=== PATIENT | male | born 1970 | race Caucasian/White ===

== ENCOUNTER 2018-04-14 07:18 | Day surgery (SDC) | payer BC, OTHER ==
[2018-04-09 12:45] VITALS: BMI 30.3
--- NOTE | 2018-04-14 07:04 | P.GSHP ---
History of Present Illness H&P Date: 04/14/18 CHIEF COMPLAINT: Colon screen HISTORY OF PRESENT ILLNESS: The patient is a 48-year-old male who presents for colon screen. Lower endoscopy was offered for further evaluation and management. PAST MEDICAL HISTORY: Please see list. PAST SURGICAL HISTORY: Please see list. MEDICATIONS: Please see list. ALLERGIES: Please see list. SOCIAL HISTORY: No illicit drug use FAMILY HISTORY: No reports of Crohn disease or ulcerative colitis. REVIEW OF ORGAN SYSTEMS: CONSTITUTIONAL: No reports of fevers or chills. PHYSICAL EXAM: VITAL SIGNS: Stable GENERAL: Well-developed pleasant in no acute distress. HEENT: No scleral icterus. Extraocular movements grossly intact. Moist buccal mucosa. NECK: Supple without lymphadenopathy. CHEST: Unlabored respirations. Equal bilateral excursions. CARDIOVASCULAR: Regular rate and rhythm. Distal 2+ pulses. ABDOMEN: Soft, nontender, nondistended. MUSCULOSKELETAL: No clubbing, cyanosis, or edema. ASSESSMENT: 1. Colon screen. PLAN: 1. Recommend proceeding with a lower endoscopy Past Medical History Past Medical History: Asthma, Hypertension, Sleep Apnea/CPAP/BIPAP Additional Past Medical History / Comment(s): SEASONAL ASTHMA. NOT ON TX FOR HTN CURRENTLY. USES CPAP. History of Any Multi-Drug Resistant Organisms: None Reported Past Surgical History: Heart Catheterization Additional Past Surgical History / Comment(s): COLONOSCOPY Past Anesthesia/Blood Transfusion Reactions: No Reported Reaction Smoking Status: Never smoker - Past Family History Mother Family Medical History: Cancer Medications and Allergies Home Medications Medication Instructions Recorded Confirmed Type Glucosamine (Unknown Dose) 1 tab PO DAILY PRN 04/09/18 History Ibuprofen [Motrin Ib] 600 mg PO Q6H PRN 04/09/18 04/09/18 History Allergies Allergy/AdvReac Type Severity Reaction Status Date / Time No Known Allergies Allergy Verified 04/09/18 12:30
[~2018-04-14 07:18] MED LIST: LACTATED RINGERS 1,000 ML IV SCH; LIDOCAINE 1% 20 ML VIAL (10MG/ML) FOR IV START INTRADERMA PRN
[2018-04-14 07:42] VITALS: RESP 18; TEMP 97.8
[2018-04-14] MEDS ORDERED: LACTATED RINGERS 1,000 ML IV ONE ×2 (07:47)
[2018-04-14] MEDS ORDERED: PROPOFOL 10 MG/ML 20 ML VIAL IV ONE (08:10)
[2018-04-14] MEDS ORDERED: LIDOCAINE 1% INJ 10MG/ML (20 ML MDV) ONE (08:10)
--- NOTE | 2018-04-14 08:38 | P.PCN ---
Date of Procedure: 04/14/18 Description of Procedure: PREOPERATIVE DIAGNOSIS: Colonoscopy screening. History of colon cancer, mother. POSTOPERATIVE DIAGNOSIS: Colonoscopy screening. History of colon cancer, mother. Tubular adenoma, sigmoid colon Hyperplastic polyp, cecum Internal hemorrhoids, grade 1 OPERATION: Colonoscopy to the ileocecal valve and appendiceal orifice. Colonoscopy with hot snare polypectomy Colonoscopy with cold forceps biopsy SURGEON: Lillian Fitzgerald MD. ANESTHESIA: MAC. INDICATIONS: The patient is a 48-year-old male who presents for colonoscopy screening. His last colonoscopy 5 years. His mother has colon cancer. Benefits and risks were described and informed consent was obtained. DESCRIPTION OF PROCEDURE: The patient had undergone Gatorade, MiraLAX and Dulcolax prep. He had been brought into the operating room and laid in the left lateral decubitus position. After adequate intravenous sedation, the rectum was examined with 2% lidocaine jelly. The prostate was smooth and without abnormalities. No external hemorrhoids were encountered. The rectal tone was within normal limits. No lesions were palpated in the rectal vault. An Olympus colonoscope was advanced until the ileocecal valve and appendiceal orifice were clearly viewed. The prep was good with visualization of the mucosal folds. The scope was removed with visualization of each mucosal fold. No scattered diverticulosis was encountered. Colonic polyps were found and cold forcep biopsy or snare polypectomy. No evidence of focal colitis was found. Retroflexion of the scope demonstrated grade 2 internal hemorrhoids without active bleeding or inflammation. The colon was desufflated. The patient had tolerated the procedure well. Withdrawal time was over 6 minutes. FINDINGS: Internal hemorrhoids, grade 2 No external hemorrhoids. Unremarkable prostate. No sigmoid diverticulosis. No arteriovenous malformations. Removal of 3 polyps: - Snare polypectomy 20 cm from the anal verge, sigmoid colon, 5 mm tubulovillous adenoma polyp. - Cold forceps biopsy at cecum, 3 mm polyp. - Cold forceps biopsy at 20 cm from the anal verge, 4 mm polyp. No focal colitis. RECOMMENDATIONS: Repeat colonoscopy in 3 years, due to family risk and high personal risk. Plan - Discharge Summary New Discharge Prescriptions: No Action Ibuprofen [Motrin Ib] 600 mg PO Q6H PRN PRN Reason: Pain Glucosamine (Unknown Dose) 1 tab PO DAILY PRN PRN Reason: Pain Discharge Medication List Glucosamine (Unknown Dose) 1 tab PO DAILY PRN 04/09/18 [History] Ibuprofen [Motrin Ib] 600 mg PO Q6H PRN 04/09/18 [History]
[2018-04-14 08:54] VITALS: BP 128/79; PULSE 76
== END 2018-04-14 09:20 | disposition home or self-care (01) ==
LOC: ORWHC2ENDO 07:18
PROVIDERS: ATTEND Surgery Plastic and Reconstructive Surgery
DX: Z12.11 Encounter for screening for malignant neoplasm of colon (principal); D12.5 Benign neoplasm of sigmoid colon; K63.5 Polyp of colon; K64.1 Second degree hemorrhoids; Z80.0 Family history of malignant neoplasm of digestive organs; J45.909 Unspecified asthma, uncomplicated; I10 Essential (primary) hypertension; G47.33 Obstructive sleep apnea (adult) (pediatric); Z99.89 Dependence on other enabling machines and devices
CPT/HCPCS: 45380; 45385; 88305

== ENCOUNTER 2021-04-24 00:47 | Observation (INO) | payer OTHER ==
[2021-04-24] MEDS ORDERED: METOPROLOL TARTRATE 5 MG/5 ML VIAL IVP STA (01:08)
[2021-04-24] MEDS ORDERED: DILTIAZEM DRIP BOLUS FROM BAG 1 MG SOLN IV ONE (01:08)
[2021-04-24] MEDS ORDERED: SODIUM CHLORIDE 0.9% 1,000 ML IV STA ×2 (01:08)
--- NOTE | 2021-04-24 01:10 | ED ---
Chest Pain HPI - General Chief Complaint: Chest Pain Stated Complaint: High heart rate Time Seen by Provider: 04/24/21 01:08 Source: patient, family, RN notes reviewed, old records reviewed Mode of arrival: ambulatory Limitations: no limitations - History of Present Illness Initial Comments: This is a 51-year-old male DF for evaluation of elevated heart rate. Patient is also complaining of chest pain and pressure with his heart rate being elevated. No history of heart disease. No history of abnormal rhythm. No drugs or alcohol abuse. No recent fevers cough congestion nausea vomiting or diarrhea. MD Complaint: chest pain -: hour(s) Onset: other (after shower) Pain Location: substernal Pain Radiation: none, RUE, LUE, back Severity: moderate Severity scale (1-10): 4 Quality: tightness Consistency: constant Improves With: nothing Worsens With: nothing Context: recent illness Anginal Symptoms: dyspnea Treatments Prior to Arrival: none - Related Data Previous Rx's Medication Instructions Recorded Aspirin 81 mg PO DAILY chew 04/25/21 Atorvastatin [Lipitor] 40 mg PO DAILY #90 tab 04/25/21 Metoprolol Tartrate [Lopressor] 25 mg PO BID #180 tab 04/25/21 Allergies Allergy/AdvReac Type Severity Reaction Status Date / Time No Known Allergies Allergy Verified 04/24/21 07:46 Review of Systems ROS Statement: Those systems with pertinent positive or pertinent negative responses have been documented in the HPI. ROS Other: All systems not noted in ROS Statement are negative. EKG Findings - EKG Comments: EKG Findings:: EKG is A fibrillation with RVR 148 QRS 94 QTC 505 Past Medical History Past Medical History: Asthma, Hypertension, Sleep Apnea/CPAP/BIPAP Additional Past Medical History / Comment(s): SEASONAL ASTHMA. NOT ON TX FOR HTN CURRENTLY. USES CPAP. History of Any Multi-Drug Resistant Organisms: None Reported Past Surgical History: Heart Catheterization Additional Past Surgical History / Comment(s): COLONOSCOPY Past Anesthesia/Blood Transfusion Reactions: No Reported Reaction Past Psychological History: No Psychological Hx Reported Smoking Status: Never smoker Past Alcohol Use History: Rare Past Drug Use History: None Reported - Past Family History Mother Family Medical History: Cancer General Exam Limitations: no limitations General appearance: alert, in no apparent distress Head exam: Present: atraumatic, normocephalic, normal inspection Eye exam: Present: normal appearance, PERRL, EOMI. Absent: scleral icterus, conjunctival injection, periorbital swelling ENT exam: Present: normal exam, mucous membranes moist Neck exam: Present: normal inspection. Absent: tenderness, meningismus, lymphadenopathy Respiratory exam: Present: normal lung sounds bilaterally. Absent: respiratory distress, wheezes, rales, rhonchi, stridor Cardiovascular Exam: Present: normal rhythm, tachycardia, normal heart sounds. Absent: systolic murmur, diastolic murmur, rubs, gallop, clicks GI/Abdominal exam: Present: soft, normal bowel sounds. Absent: distended, tenderness, guarding, rebound, rigid Extremities exam: Present: normal inspection, full ROM, normal capillary refill. Absent: tenderness, pedal edema, joint swelling, calf tenderness Back exam: Present: normal inspection Neurological exam: Present: alert, oriented X3, CN II-XII intact Psychiatric exam: Present: normal affect, normal mood Skin exam: Present: warm, dry, intact, normal color. Absent: rash Course Vital Signs 04/24/21 04/24/21 04/24/21 00:49 01:08 01:45 Temperature 97.4 F L 97.7 F Pulse Rate 112 H 158 H 101 H Pulse Rate [ Marine Cargo Inspector ] Respiratory 18 18 16 Rate Blood Pressure 165/111 152/107 Blood Pressure [Right Arm] O2 Sat by Pulse 98 97 Oximetry 04/24/21 04/24/21 01:47 01:56 Temperature 98.7 F Pulse Rate 96 Pulse Rate [ 105 H Marine Cargo Inspector ] Respiratory 14 16 Rate Blood Pressure 132/102 Blood Pressure 151/99 [Right Arm] O2 Sat by Pulse 98 98 Oximetry Chest Pain MDM - MDM (9.9-year-old male with a trip for which with RVR, patient be admitted for rate control as well as chest pain observation Critical Care Time Critical Care Time: Yes Total Critical Care Time: 31 Disposition Clinical Impression: Atypical chest pain, Atrial fibrillation with RVR Disposition: ADMITTED IP TO THIS HOSP Is patient prescribed a controlled substance at d/c from ED?: No
[2021-04-24] MEDS: DILTIAZEM 125 MG in SODIUM CHLORIDE 0.9% 100 ML IV SCH (01:33)
[2021-04-24] MEDS ORDERED: ASPIRIN 81 MG PO STA (01:35)
[2021-04-24] MEDS ORDERED: NITROGLYCERIN SL TABS 0.4 MG TAB SUBLINGUAL PRN (01:35)
[2021-04-24] MEDS ORDERED: HEPARIN SODIUM 1,000 UN/ML (10ML VL) IV ONE (01:35)
[2021-04-24 01:49] LABS: Basophils # (A) 0.1 k/uL (0-0.2); Basophils % (A) 1 %; Eosinophils # (A) 0.1 k/uL (0-0.7); Eosinophils % (A) 1 %; HCT 49.2 % (39.0-53.0); Lymphocytes # (A) 2.4 k/uL (1.0-4.8); Lymphocytes % (A) 33 %; MCH 29.6 pg (25.0-35.0); MCHC 32.6 g/dL (31.0-37.0); MCV 90.8 fL (80.0-100.0); Mean Platelet Volume 6.9; Monocytes # (A) 0.6 k/uL (0-1.0); Monocytes % (A) 8 %; Neutrophils # (A) 4.1 k/uL (1.3-7.7); Neutrophils % (A) 55 %; Platelet Count 235 k/uL (150-450); RBC 5.42 m/uL (4.30-5.90); RDW 12.7 % (11.5-15.5); WBC 7.4 k/uL (3.8-10.6)
[2021-04-24 02:10] LABS: D-Dimer 0.24 mg/L FEU (<0.60); INR 0.9 (<1.2); Partial Thromboplastin Time 24.9 sec (22.0-30.0); Prothrombin Time 9.8 sec (9.0-12.0)
[2021-04-24 02:19] LABS: ALT 29 U/L (4-49); AST 33 U/L (17-59); African American GFR (CKD) >90 (>60 ml/min/1.73 sqM); Alkaline Phosphatase 126 U/L (38-126); Anion Gap 10 mmol/L; Blood Urea Nitrogen 13 mg/dL (9-20); Calcium 10.4 mg/dL (8.4-10.2); Carbon Dioxide 30 mmol/L (22-30); Chloride 100 mmol/L (98-107); Creatine Kinase 160 U/L (55-170); Glucose 174 mg/dL (74-99); Magnesium 1.7 mg/dL (1.6-2.3); Non-African American GFR(CKD) >90 (>60 ml/min/1.73 sqM); Phosphorus 3.1 mg/dL (2.5-4.5); Potassium 3.8 mmol/L (3.5-5.1); Sodium 140 mmol/L (137-145); Total Bilirubin 0.6 mg/dL (0.2-1.3); Total Protein 8.4 g/dL (6.3-8.2)
[2021-04-24] MEDS: HEPARIN SOD,PORK IN 0.45% NACL 25,000 UNIT in 0.45% NACL 1 250ML.BAG IV SCH (03:41)
[2021-04-24] MEDS ORDERED: METOPROLOL TARTRATE 25 MG TAB PO SCH (09:00)
[2021-04-24] MEDS ORDERED: METOPROLOL TARTRATE 25 MG TAB PO STA (09:10)
--- NOTE | 2021-04-24 10:32 | P.CRDCN ---
History of Present Illness History of present illness: HISTORY OF PRESENTING ILLNESS This is a pleasant 51-year-old male past medical history significant for asthma, hypertension, dyslipidemia and obstructive sleep apnea for which she is noncompliant with CPAP. He denies prior history of coronary artery disease and does not follow regularly with a unix administrator. He underwent a cardiac catheterization in early 1999 that he states was normal. He had a stress echocardiogram in 2014 revealed exercised for 11 minutes and had some EKG abnormalities however echocardiogram was normal. We have been asked to see in consultation for new onset atrial fibrillation. He states last evening he had taken a shower and was getting ready for bed when he started feeling his heart racing and a full sensation in his chest. His Phippen indicated that his heart rate was elevated above 140. He presented to the emergency department and EKG evaluation revealed A. fib with rapid ventricular rate heart rate of 148. He was given IV Lopressor, Cardizem infusion and heparin infusion. He continues to be in atrial fibrillation with rates between 110-115. He states at rest he still can feel funny sensation in his chest that the palpitations have significantly improved. He denies any associated shortness of breath, dizziness, nausea, vomiting or diaphoresis. Laboratory data reviewed, CBC unremarkable, d-dimer 0.24, sodium 140, potassium 3.8, creatinine 0.9, magnesium 1.7, cardiac enzymes negative 2, NT proBNP 19 and TSH 5.46. He takes no daily cardiac medications. He states over the previous couple of years he has come back and forth between taking medications for blood pressure and cholesterol however recently his physician told him he could stop. He doesn't recall what he was taking in the past. REVIEW OF SYSTEMS At the time of my exam: CONSTITUTIONAL: Denies fever or chills. CARDIOVASCULAR: Complains of palpitations. Denies chest pain, shortness of breath, orthopnea or PND. RESPIRATORY: Denies cough. GASTROINTESTINAL: Denies abdominal pain, diarrhea, constipation, nausea or vomiting. MUSCULOSKELETAL: Denies myalgias. NEUROLOGIC: Denies numbness, tingling, headacbe or weakness. ENDOCRINE: Denies fatigue, weight change, polydipsia or polyurina. GENITOURINARY: Denies burning, hematuria or urgency with micturation. HEMATOLOGIC: Denies history of anemia or bleeding. PHYSICAL EXAMINATION Blood pressure 151/99 heart rate 105 afebrile and maintaining oxygen saturation on room air. CONSTITUTIONAL: No apparent distress. HEENT: Head is normocephalic. Pupils are equal, round. Sclerae anicteric. Mucous membranes of the mouth are moist. No JVD. No carotid bruit. CHEST EXAMINATION: Lungs are clear to auscultation. No chest wall tenderness is noted on palpation or with deep breathing. HEART EXAMINATION: Irregular rate and rhythm. S1, S2 heard. Systolic ejection murmur at the left sternal border, no gallops or rub. ABDOMEN: Soft, nontender. Positive bowel sounds. EXTREMITIES: 2+ peripheral pulses, no lower extremity edema and no calf tenderness. NEUROLOGIC EXAMINATION: Patient is awake, alert and oriented x3. ASSESSMENT New onset paroxysmal atrial fibrillation with rapid ventricular rate Hypertension Dyslipidemia Obstructive sleep apnea, noncompliant with CPAP PLAN Obtain 2-D echocardiogram and Doppler study to assess cardiac structure and function. Increase lopressor to 50 mg BID. Continue cardizem and heparin infusion. If LV function is normal we will consider using flecanide. If abnormal we will schedule him for a PRISCILA/CV tomorrow am. Further recommendations to follow based on clinical course. Thank you kindly for this consultation. Nurse Practitioner note has been reviewed, I agree with a documented findings and plan of care. Patient was seen and examined. Past Medical History Past Medical History: Asthma, Hypertension, Sleep Apnea/CPAP/BIPAP Additional Past Medical History / Comment(s): SEASONAL ASTHMA. NOT ON TX FOR HTN CURRENTLY. USES CPAP. History of Any Multi-Drug Resistant Organisms: None Reported Past Surgical History: Heart Catheterization Additional Past Surgical History / Comment(s): COLONOSCOPY Past Anesthesia/Blood Transfusion Reactions: No Reported Reaction Past Psychological History: No Psychological Hx Reported Smoking Status: Never smoker Past Alcohol Use History: Rare Past Drug Use History: None Reported - Past Family History Mother Family Medical History: Cancer Medications and Allergies Home Medications Medication Instructions Recorded Confirmed Type No Known Home Medications 04/24/21 04/24/21 History Allergies Allergy/AdvReac Type Severity Reaction Status Date / Time No Known Allergies Allergy Verified 04/24/21 07:46 Physical Exam Vitals: Vital Signs Temp Pulse Pulse Resp BP BP Pulse Ox 04/24/21 04:00 98.5 F 105 H 14 151/99 98 04/24/21 01:56 96 16 132/102 98 04/24/21 01:47 98.7 F 105 H 14 151/99 98 04/24/21 01:45 97.7 F 101 H 16 152/107 97 04/24/21 01:08 158 H 18 04/24/21 00:49 97.4 F L 112 H 18 165/111 98 Intake and Output 04/23/21 04/24/21 04/24/21 22:59 06:59 14:59 Other: # Voids 1 Weight 99.2 kg Results 04/24/21 01:28 04/24/21 01:28 Cardiac Enzymes 04/24/21 04/24/21 04/24/21 Range/Units 01:28 01:28 04:24 AST 33 (17-59) U/L Troponin I <0.012 <0.012 (0.000-0.034) ng/mL Coagulation 04/24/21 Range/Units 01:28 PT 9.8 (9.0-12.0) sec APTT 24.9 (22.0-30.0) sec CBC 04/24/21 Range/Units 01:28 WBC 7.4 (3.8-10.6) k/uL RBC 5.42 (4.30-5.90) m/uL Hgb 16.0 (13.0-17.5) gm/dL Hct 49.2 (39.0-53.0) % Plt Count 235 (150-450) k/uL Comprehensive Metabolic Panel 04/24/21 Range/Units 01:28 Sodium 140 (137-145) mmol/L Potassium 3.8 (3.5-5.1) mmol/L Chloride 100 (98-107) mmol/L Carbon Dioxide 30 (22-30) mmol/L BUN 13 (9-20) mg/dL Creatinine 0.90 (0.66-1.25) mg/dL Glucose 174 H (74-99) mg/dL Calcium 10.4 H (8.4-10.2) mg/dL AST 33 (17-59) U/L ALT 29 (4-49) U/L Alkaline Phosphatase 126 (38-126) U/L Total Protein 8.4 H (6.3-8.2) g/dL Albumin 5.0 (3.5-5.0) g/dL Current Medications Generic Name Dose Route Start Last Admin Trade Name Freq PRN Reason Stop Dose Admin Sodium Chloride 1,000 mls @ 130 mls/hr 04/24/21 01:08 04/24/21 01:15 Saline 0.9% IV 04/24/21 08:49 130 mls/hr .Q7H42M STA Administration Diltiazem HCl 125 mg/ Sodium 125 mls @ 5 mls/hr 04/24/21 01:15 04/24/21 01:33 Chloride IV 5 mg/hr .Q24H JORDEN 5 mls/hr Administration 5 MG/HR Heparin Sodium/Sodium Chloride 250 mls @ 10 mls/hr 04/24/21 01:45 04/24/21 03:41 25,000 unit/ Sodium Chloride IV 9.9307 units/kg/hr .Q24H JORDEN 10 mls/hr Administration Protocol 9.9307 UNITS/KG/HR Metoprolol Tartrate 25 mg 04/24/21 09:00 Metoprolol Tartrate 25 Mg Tab PO BID JORDEN Nitroglycerin 0.4 mg 04/24/21 01:35 Nitroglycerin Sl Tabs 0.4 Mg Tab SUBLINGUAL Q5M PRN Chest Pain Intake and Output 04/23/21 04/24/21 04/24/21 22:59 06:59 14:59 Other: # Voids 1 Weight 99.2 kg 04/24/21 01:28 04/24/21 01:28
--- NOTE | 2021-04-24 10:37 | ECHOF ---
Referral Reason:aFIb MEASUREMENTS -------- HEIGHT: 182.9 cm WEIGHT: 98.9 kg BP: 151/99 IVSd: 1.6 cm (0.6 - 1.1) LVIDd: 3.9 cm (3.9 - 5.3) LVPWd: 1.8 cm (0.6 - 1.1) IVSs: 2.2 cm LVIDs: 2.8 cm LVPWs: 2.8 cm LAESV Index (A-L): 23.89 ml/m Ao Diam: 3.4 cm (2.0 - 3.7) AV Cusp: 1.7 cm (1.5 - 2.6) LA Diam: 2.6 cm (2.7 - 3.8) MV EXCURSION: 17.007 mm (> 18.000) MV EF SLOPE: 129 mm/s (70 - 150) EPSS: 0.3 cm AV maxP.29 mmHg AV meanP.26 mmHg AR PHT: 438 ms RAP: 15.00 mmHg RVSP: 29.44 mmHg FINDINGS -------- Atrial fibrillation. This was a technically adequate study. The left ventricular size is normal. There is severe concentric left ventricular hypertrophy. Ove rall left ventricular systolic function is normal with, an EF between 55 - 60 %. Left ventricular f illimg pressure cannot be estimated due to Atrial fibrillation. The right ventricle is normal in size. Normal LA size by volume 22+/-6 ml/m2. The right atrial size is normal. Aortic valve is trileaflet and is moderately thickened. Trace amount of aortic regurgitation. Th ere is mild aortic stenosis present. Peak/mean gradient across the Aortic Valve is 14.29mmHg / 8.26 mmHg. The mitral valve leaflets are moderately thickened. [id number] mitral regurgitation is presen t. There bis an echogenic structure on the AMVL. The tricuspid valve appears structurally normal. Mild tricuspid regurgitation present. Right vent ricular systolic pressure is normal at < 35 mmHg. The pulmonic valve was not well visualized. There is no pulmonic regurgitation present. The aortic root size is normal. The inferior vena cava is mildly dilated. There is no pericardial effusion. CONCLUSIONS -------- 1. Atrial fibrillation. 2. There is severe concentric left ventricular hypertrophy. 3. Overall left ventricular systolic function is normal with, an EF between 55 - 60 %. 4. Normal LA size by volume 22+/-6 ml/m2. 5. Aortic valve is trileaflet and is moderately thickened. 6. Trace amount of aortic regurgitation. 7. There is mild aortic stenosis present. 8. Peak/mean gradient across the Aortic Valve is 14.29mmHg / 8.26mmHg. 9. The mitral valve leaflets are moderately thickened. 10. Nihx-ia-ksaqkhyi mitral regurgitation is present. 11. There bis an echogenic structure on the AMVL. 12. Mild tricuspid regurgitation present. 13. The inferior vena cava is mildly dilated. 14. There is no pericardial effusion. MECHANICAL ENGINEERING SPECIALIST: Nori Rajan RDCS
[2021-04-24] MEDS ORDERED: FLECAINIDE 50 MG TAB PO STA (11:11)
[2021-04-24] MEDS ORDERED: SODIUM CHLORIDE 0.9% 1,000 ML IV SCH (14:45)
--- NOTE | 2021-04-24 14:46 | P.HPIM ---
History of Present Illness H&P Date: 04/24/21 Chief Complaint: Feeling unwell History of presenting complaint: This is a pleasant 51-year-old patient of Dr. Carter. Chronic stable medical conditions include intermittent asthma rather seasonal, obstructive sleep apnea does not use the CPAP, hypertension being taken off medications. Yesterday started feeling just not right. Some shortness of breath and palpitation. No fever no chills. Presented to ER. Found to be in atrial fibrillation with rapid ventricular rate. About 148. Given Lopressor 5 mg IV push 1 and started on a Cardizem drip. This morning. Symptoms are better. Heart rate is better controlled. Patient does drink about 5 cups of coffee a day. Soda sometimes. 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 Review of systems: GEN.: Tired EYES: None HEENT: None NECK: None RESPIRATORY: None CARDIOVASCULAR: As above GASTROINTESTINAL: None GENITOURINARY: None MUSCULOSKELETAL: None LYMPHATICS: None HEMATOLOGICAL: None PSYCHIATRY: Anxious NEUROLOGICAL: None Past medical history to include: Intermittent asthma/seasonal, essential hypertension off medications, obstructive sleep apnea does not use CPAP Social history: . 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 Chews tobacco. Alcohol socially. Physical examination: VITAL SIGNS: 97.4, 150, 18, 165 bun 11, 98% room air-upon presentation GENERAL: BMI 28.1, laying in bed, awake. EYES: Pupils equal. Conjunctiva normal. HEENT: External appearance of nose and ears normal, oral cavity grossly normal. NECK: JVD not raised; masses not palpable. HEART: And regular; no edema. LUNGS: Respiratory rate normal; clear to auscultation. ABDOMEN: Soft, nontender, liver spleen not palpable, no masses palpable. PSYCH: Alert and oriented x3; mood and affect normal. NEUROLOGICAL: Cranial nerves grossly intact; no facial asymmetry, power and sensation grossly intact. LYMPHATICS: No lymph nodes palpable in the axilla and neck INVESTIGATIONS, reviewed in the clinical context: WBC 7.4 hemoglobin 16 platelets 235 potassium 3.8 creatinine 0.9 Troponin I less than 0.0123 TSH 5.4 Coronavirus [PCR]: Not detected EKG tracing personally reviewed by me-atrial fibrillation rate of 148 2-D echocardiogram: EF 55-60%, severe concentric LVH, [id number] mitral regurgitation Assessment and plan: -New onset of atrial fibrillation with a rapid ventricular rate Was given 5 mg of Lopressor IV in the ER didn't put on a Cardizem drip. 2-D echocardiogram as above -IV heparin, monitoring -IV Cardizem drip monitoring -[id number] mitral regurgitation Follow clinically -Essential hypertension Started on Lopressor -Hypertensive heart disease -Obstructive sleep apnea Patient has not been using his CPAP. Advised to resume the same. -Chronic nicotine use in the form of chewing tobacco Advised against the same -Excessive caffeine intake patient gets about 5 cups of coffee a day. Consult about the same to cut back Cardiology was consulted. Started on metoprolol. Past Medical History Past Medical History: Asthma, Hypertension, Sleep Apnea/CPAP/BIPAP Additional Past Medical History / Comment(s): SEASONAL ASTHMA. NOT ON TX FOR HTN CURRENTLY. USES CPAP. History of Any Multi-Drug Resistant Organisms: None Reported Past Surgical History: Heart Catheterization Additional Past Surgical History / Comment(s): COLONOSCOPY Past Anesthesia/Blood Transfusion Reactions: No Reported Reaction Past Psychological History: No Psychological Hx Reported Smoking Status: Never smoker Past Alcohol Use History: Rare Past Drug Use History: None Reported - Past Family History Mother Family Medical History: Cancer Medications and Allergies Home Medications Medication Instructions Recorded Confirmed Type No Known Home Medications 04/24/21 04/24/21 History Allergies Allergy/AdvReac Type Severity Reaction Status Date / Time No Known Allergies Allergy Verified 04/24/21 07:46 Physical Exam Vitals: Vital Signs Temp Pulse Pulse Resp BP BP Pulse Ox 04/24/21 04:00 98.5 F 105 H 14 151/99 98 04/24/21 01:56 96 16 132/102 98 04/24/21 01:47 98.7 F 105 H 14 151/99 98 04/24/21 01:45 97.7 F 101 H 16 152/107 97 04/24/21 01:08 158 H 18 04/24/21 00:49 97.4 F L 112 H 18 165/111 98 Intake and Output 04/23/21 04/24/21 04/24/21 22:59 06:59 14:59 Intake Total 240 Balance 240 Intake: Oral 240 Other: # Voids 1 Weight 99.2 kg Results CBC & Chem 7: 04/24/21 01:28 04/24/21 01:28 Labs: Abnormal Lab Results - Last 24 Hours (Table) 04/24/21 Range/Units 01:28 Glucose 174 H (74-99) mg/dL Calcium 10.4 H (8.4-10.2) mg/dL Total Protein 8.4 H (6.3-8.2) g/dL TSH 5.460 H (0.465-4.680) mIU/L Thrombosis Risk Factor Assmnt - Choose All That Apply Any of the Below Risk Factors Present?: Yes Each Factor Represents 1 point: Age 41-60 years, Obesity (BMI >25) Other Risk Factors: No Thrombosis Risk Factor Assessment Total Risk Factor Score: 2 Thrombosis Risk Factor Assessment Level: Low Risk
[2021-04-24] MEDS ORDERED: METOPROLOL TARTRATE 50 MG TAB PO SCH (21:00)
[2021-04-24 23:12] LABS: Chol/HDL Ratio 6.5; LDL Cholesterol,Calculated 157.8 mg/dL (0.0-131.0); VLDL Calculation 40.2 mg/dL (5.00-40.00)
[2021-04-25 00:10] VITALS: RESP 16
[2021-04-25] MEDS: HEPARIN SOD,PORK IN 0.45% NACL 25,000 UNIT in 0.45% NACL 1 250ML.BAG IV SCH (03:17)
[2021-04-25] MEDS: DILTIAZEM 125 MG in SODIUM CHLORIDE 0.9% 100 ML IV SCH (03:17)
[2021-04-25] MEDS ORDERED: ASPIRIN 325 MG TAB PO SCH (09:00)
[2021-04-25] MEDS ORDERED: FLECAINIDE 50 MG TAB PO SCH (09:00)
[2021-04-25] MEDS ORDERED: METOPROLOL TARTRATE 25 MG TAB PO SCH (09:00)
[2021-04-25] MEDS ORDERED: ATORVASTATIN 40 MG TAB PO SCH (09:00)
[2021-04-25] MEDS ORDERED: ASPIRIN 81 MG PO SCH (09:00)
[2021-04-25 10:53] VITALS: BP 110/81; PULSE 62; TEMP 98.7
--- NOTE | 2021-04-25 11:32 | P.PN ---
Subjective HISTORY OF PRESENTING ILLNESS This is a pleasant 51-year-old male past medical history significant for asthma, hypertension, dyslipidemia and obstructive sleep apnea for which she is noncompliant with CPAP. 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 He underwent a cardiac cath eterization in early 1999 that he states was normal. He had a stress echocardiogram in 2014 revealed exercised for 11 minutes and had some EKG abnormalities however echocardiogram was normal. We have been asked to see in consultation for new onset atrial fibrillation. He states last evening he had taken a shower and was getting ready for bed when he started feeling his heart racing and a full sensation in his chest. His Phippen indicated that his heart rate was elevated above 140. He presented to the emergency department and EKG evaluation revealed A. fib with rapid ventricular rate heart rate of 148. He was given IV Lopressor, Cardizem infusion and heparin infusion. He continues to be in atrial fibrillation with rates between 110-115. He states at rest he still can feel funny sensation in his chest that the palpitations have significantly improved. He denies any associated shortness of breath, dizziness, nausea, vomiting or diaphoresis. Laboratory data reviewed, CBC unremarkable, d-dimer 0.24, sodium 140, potassium 3.8, creatinine 0.9, magnesium 1.7, cardiac enzymes negative 2, NT proBNP 19 and TSH 5.46. He takes no daily cardiac medications. He states over the previous couple of years he has come back and forth between taking medications for blood pressure and cholesterol however recently his physician told him he could stop. He doesn't recall what he was taking in the past. 04/25/2021 Patient converted last evening around 5 PM to sinus rhythm and has been ma intaining since that time. Heart rate has been in the 60s. Blood pressure 110/81. Echocardiogram obtained reveals preserved LV systolic function with ejection fraction 55-60%, severe concentric LVH, mild aortic stenosis with a mean gradient of 8 mmHg, mild to moderate mitral regurgitation with an echogenic structure noted on the anterior mitral valve leaflet, mild tricuspid regurgitation and mildly dilated inferior vena cava. Laboratory data reviewed, LDL 157, HDL 36, TSH 5.4 and free T4 1.01. PHYSICAL EXAMINATION Blood pressure 151/99 heart rate 105 afebrile and maintaining oxygen saturation on room air. CONSTITUTIONAL: No apparent distress. HEENT: Head is normocephalic. Pupils are equal, round. Sclerae anicteric. Mucous membranes of the mouth are moist. No JVD. No carotid bruit. CHEST EXAMINATION: Lungs are clear to auscultation. No chest wall tenderness is noted on palpation or with deep breathing. HEART EXAMINATION: Regular rate and rhythm. S1, S2 heard. Systolic ejection murmur at the left sternal border, no gallops or rub. EXTREMITIES: 2+ peripheral pulses, no lower extremity edema and no calf tenderness. ASSESSMENT New onset paroxysmal atrial fibrillation with rapid ventricular rate, back in SR Hypertension Dyslipidemia Obstructive sleep apnea, noncompliant with CPAP PLAN Decrease metoprolol to 25 mg twice a day. CHADS-VASC score is 1 only for hypertension. No long-term anticoagulation recommended at discharge. Discussed echocardiographic findings with the patient and recommend further outpatient evaluation. Stable for discharge from a cardiac perspective, follow-up in the office with Dr. Laguerre in one to 2 weeks. Recommend compliance with nightly CPAP machine and decreasing amount of caffeine intake. Nurse Practitioner note has been reviewed, I agree with a documented findings and plan of care. Patient was seen and examined. Objective - Vital Signs Vital signs: Vital Signs Temp 98.7 F 04/25/21 08:00 Pulse 62 04/25/21 08:00 Resp 16 04/25/21 08:00 BP 110/81 04/25/21 08:00 Pulse Ox 97 04/25/21 08:00 Intake & Output 04/24/21 04/25/21 04/25/21 18:59 06:59 18:59 Intake Total 2016 1330 180 Balance 2016 1330 180 Weight 100.1 kg Intake: Intake, IV Titration 117 610 Amount Diltiazem 125 mg In 40 Sodium Chloride 0.9% 100 ml @ 5 MG/HR 5 mls/hr IV .Q24H JORDEN Rx#:[id number] Heparin Sod,Pork in 0.45% 77 NaCl 25,000 unit In 0.45 % NaCl 1 250ml.bag @ 9. 9307 UNITS/KG/HR 10 mls/ hr IV .Q24H JORDEN Rx#: [id number] Sodium Chloride 0.9% 1, 390 000 ml @ 130 mls/hr IV . Q7H42M STA Rx#:[id number] Sodium Chloride 0.9% 1, 220 000 ml @ 20 mls/hr IV . Q24H JORDEN Rx#:[id number] Oral 1900 720 180 Other: # Voids 2 - Labs CBC & Chem 7: 04/24/21 01:28 04/24/21 01:28 Labs: Abnormal Lab Results - Last 24 Hours (Table) 04/24/21 04/24/21 04/25/21 Range/Units 09:14 18:44 07:20 APTT 46.4 H 36.3 H (22.0-30.0) sec Triglycerides 201.0 H (0.0-149.0) mg/dL Cholesterol 234 H (0-200) mg/dL LDL Cholesterol, Calc 157.8 H (0.0-131.0) mg/dL VLDL Cholesterol, Calc 40.20 H (5.00-40.00) mg/dL HDL Cholesterol 36.0 L (40.0-60.0) mg/dL
--- NOTE | 2021-04-25 20:19 | P.DS ---
Providers Date of admission: 04/24/21 01:35 Expected date of discharge: 04/25/21 Attending physician: Didier Faustin Consults: 04/24/21 01:35 Consult Physician Urgent Consulting Provider: Yesi Sweeney Consult Reason/Comments: afib Do you want consulting provider notified?: Yes Primary care physician: [facility] Course: Chief Complaint: Feeling unwell History of presenting complaint: This is a pleasant 51-year-old patient of Dr. Carter. Chronic stable medical conditions include intermittent asthma rather seasonal, obstructive sleep apnea does not use the CPAP, hypertension being taken off medications. Yesterday started feeling just not right. Some shortness of breath and palpitation. No fever no chills. Presented to ER. Found to be in atrial fibrillation with rapid ventricular rate. About 148. Given Lopressor 5 mg IV push 1 and started on a Cardizem drip. This morning. Symptoms are better. Heart rate is better controlled. Patient does drink about 5 cups of coffee a day. Soda sometimes. 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 Today: Last evening patient converted to sinus rhythm. Starting beta vinita today. Based on the chart score patient does not qualify for anticoagulation. Cleared by cardiology. Care was discussed with the patient. Questions answered. Patient LDL came back at 157. Counseled about his diet. Started on Lipitor. Discussion and discharge planning more than 35 minutes Consultation: Dr. Rouse from cardiology. Past medical history to include: Intermittent asthma/seasonal, essential hypertension off medications, obstructive sleep apnea does not use CPAP Social history: . 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 Chews tobacco. Alcohol socially. Physical examination: VITAL SIGNS: 98.7, 62, 16, 110/81, 97% room air GENERAL: Sitting up, comfortable. EYES: Pupils equal. Conjunctiva normal. NECK: JVD not raised; masses not palpable. HEART: And regular; no edema. LUNGS: Respiratory rate normal; clear to auscultation. ABDOMEN: Soft, nontender, liver spleen not palpable, no masses palpable. PSYCH: Alert and oriented x3; mood and affect normal. INVESTIGATIONS, reviewed in the clinical context: WBC 7.4 hemoglobin 16 platelets 235 potassium 3.8 creatinine 0.9 Troponin I less than 0.0123 TSH 5.4 Coronavirus [PCR]: Not detected EKG tracing personally reviewed by me-atrial fibrillation rate of 148 2-D echocardiogram: EF 55-60%, severe concentric LVH, [id number] mitral regurgitation Assessment and plan: -Paroxysmal/New onset of atrial fibrillation with a rapid ventricular rate: Back in sinus rhythm Was given 5 mg of Lopressor IV in the ER didn't put on a Cardizem drip. 2-D echocardiogram as above. Now placed on Lopressor -IV heparin, monitoring Discontinued -IV Cardizem drip monitoring Discontinued -Wdom-zo-syjoitqa mitral regurgitation Follow clinically -Essential hypertension Started on Lopressor -Hypertensive heart disease -Obstructive sleep apnea Patient has not been using his CPAP. Advised to resume the same. -Chronic nicotine use in the form of chewing tobacco Advised against the same -Excessive caffeine intake patient gets about 5 cups of coffee a day. Consult about the same to cut back -Hyperlipidemia Lipitor Disposition: Home Plan - Discharge Summary New Discharge Prescriptions: New Aspirin 81 mg PO DAILY chew Atorvastatin [Lipitor] 40 mg PO DAILY #90 tab Metoprolol Tartrate [Lopressor] 25 mg PO BID #180 tab Discharge Medication List Aspirin 81 mg PO DAILY chew 04/25/21 [Rx] Atorvastatin [Lipitor] 40 mg PO DAILY #90 tab 04/25/21 [Rx] Metoprolol Tartrate [Lopressor] 25 mg PO BID #180 tab 04/25/21 [Rx] Follow up Appointment(s)/Referral(s): Mukund Carter DO [Primary Care Provider] - 1-2 days (Office will call with appointment date and time ) Ophelia Laguerre MD [STAFF PHYSICIAN] - 2 Weeks (Office will call with appointment date and time ) Patient Instructions/Handouts: A-fib (Atrial Fibrillation) (DC), Heart Healthy Diet (GEN) Discharge Disposition: HOME SELF-CARE
== END 2021-04-25 13:37 | disposition home or self-care (01) ==
LOC: EC 00:47 → 3SCARD 01:35 → INTOOBSV 01:35 → UNDODISIN 04-25 13:37
PROVIDERS: ADMIT Hospitalist; ATTEND Hospitalist
DX: I48.0 Paroxysmal atrial fibrillation (principal); I11.9 Hypertensive heart disease without heart failure; I34.0 Nonrheumatic mitral (valve) insufficiency; E78.5 Hyperlipidemia, unspecified; G47.33 Obstructive sleep apnea (adult) (pediatric); Z91.19 Patient's noncompliance with other medical treatment and regimen; J45.20 Mild intermittent asthma, uncomplicated; J45.998 Other asthma; F17.290 Nicotine dependence, other tobacco product, uncomplicated; E66.9 Obesity, unspecified; Z68.28 Body mass index [BMI] 28.0-28.9, adult; Z20.822 Contact with and (suspected) exposure to COVID-19; Z79.82 Long term (current) use of aspirin; Z79.899 Other long term (current) drug therapy; Z98.890 Other specified postprocedural states; Z80.9 Family history of malignant neoplasm, unspecified
CPT/HCPCS: 96376; 96365; 96366 ×2; 93005 ×3; 96361; 96375; 99291; 36415; 93306; 85379; 84439; 83880; 80061; 80053; 82550; 83735; 84100; 84443; 84484; 85025; 85610; 85730 ×2; 87635; G0378 ×2; J1644 ×2; 96374; 99285

== ENCOUNTER → 2021-08-07 | Outpatient (CLI) | payer OTHER ==
--- NOTE | 2021-08-07 13:20 | CONS ---
CONSULTATION DATE OF SERVICE: 08/07/2021 51-year-old gentleman has been evaluated in [facility] for obstructive sleep apnea- hypopnea syndrome. HISTORY OF PRESENT ILLNESS/SLEEP WAKE EVALUATION: Last time I saw patient in sleep Clinic in July of 2016. He was treated for obstructive sleep apnea-hypopnea syndrome which was diagnosed by home sleep apnea test which showed apnea-hypopnea index 18.7 and then patient had CPAP titration and subsequently treated with CPAP. Since the time when I saw patient, he used his equipment for about 2 years and then stopped using it until about 2 months ago when he was found that he has episodes of atrial fibrillation and he was strongly recommended to restart using CPAP and he restarted using his CPAP. SLEEP SCHEDULE: Presently, his sleep schedule from 11 p.m. to 8 a.m. on weekdays and from midnight until 8 or 9:00 am on weekends. FALLING ASLEEP: No problems with falling asleep, although he has TV set in bedroom. DURING SLEEP: Usually sleeps on the side position, wakes up from sleep up to 2 times with nocturia. No history of hypnagogic hallucinations, sleep paralysis or cataplexy. Without machine patient snores. I checked his CPAP unit pressure is 13 cm of water. For the last month, patient used it 23 nights, 19 nights more than 4 hours, average 5.1 hours per night. Leak is 23 L/minute. Apnea-hypopnea index 2.5 which is in normal range. He decreased his weight from 231 pounds down to 210 pounds since I saw patient last time. PAST MEDICAL HISTORY: Positive for hypertension, hyperlipidemia, recently episodes of atrial fibrillation on and off. PAST SURGICAL HISTORY: None. MEDICATIONS: Lopressor 25 mg twice a day. Crestor 5 mg once a day. Aspirin 81 mg once a day. Rythmol 300 mg as needed. Multivitamins. SOCIAL HISTORY: Negative for smoking. Alcohol consumption occasional. Positive history of chewing tobacco. FAMILY HISTORY: Hypertension, asthma, mental illness. REVIEW OF SYSTEMS: Awakenings from sleep, snoring. PHYSICAL EXAMINATION: GENERAL: gentleman without distress. BP 128/83, HR 57. RR 15, height 6 feet 1 inch and 1/2, weight 210.4, body mass index 27.5, temperature 96.3, oxygen saturation at room air 99%. Oropharynx low position of soft palate, Mallampati 3. NECK is wide 17-3/4 inches in circumference. Neck: Supple, no JVD. Thyroid is not palpable. LUNGS: Clear to percussion and to auscultation. Good air exchange. No wheezing or rhonchi. HEART: S1, S2 regular. No murmurs, gallops, or rubs. ABDOMEN: Soft and nontender. Bowel sounds are present. No organomegaly appreciated. EXTREMITIES: No clubbing or cyanosis. ROLL BUILDER: Awake, alert, and oriented X3. Cranial nerves 2 to 7 intact. There is no fasciculation or atrophy. noted. No focal deficits observed. IMPRESSION: 1. Obstructive sleep apnea-hypopnea syndrome in moderate range by results of home sleep apnea test in 2016. Low position of soft palate, Mallampati wide neck 17-3/4 inches in circumference. Recently while using his machine. Apnea-hypopnea index in normal range. 2. History of episodes of atrial fibrillation. 3. Hypertension. 4. Hyperlipidemia. PLAN: 1. Prescription for all necessary CPAP supplies including a new mask, heated tube, filters. 2. Followup visit in several months to evaluate the patient compliance with treatment, clinical response on treatment and make any necessary adjustments. 3. Watching weight. 4. Sleep hygiene with regular time in bed for 7-1/2 to 8 hours. 5. No driving if feeling sleepiness. Thank you very much for allowing me to participate in management of your patient. Sincerely, Navid Ashton MD, PhD, FAASM Diplomat of [employer] [employer] Sleep Medicine Board of [place] [employer] [facility] [place] MMODL / IJN: [id number] /
== END ==
LOC: SLEEP 10:36
PROVIDERS: ATTEND Internal Medicine
DX: G47.33 Obstructive sleep apnea (adult) (pediatric) (principal); E78.5 Hyperlipidemia, unspecified; I10 Essential (primary) hypertension; I48.91 Unspecified atrial fibrillation; Z99.89 Dependence on other enabling machines and devices; Z79.899 Other long term (current) drug therapy
CPT/HCPCS: 99211

== ENCOUNTER → 2021-08-09 | Outpatient (CLI) | payer OTHER ==
[2021-08-10 02:30] LABS: C Reactive Protein 0.8 mg/dL (0.00-0.80); Uric Acid 6.7 mg/dL (3.7-8.7)
== END | disposition home or self-care (01) ==
LOC: LABWHC1 13:58
PROVIDERS: ATTEND Psychiatry & Neurology Pain Medicine
DX: M46.90 Unspecified inflammatory spondylopathy, site unspecified (principal)
CPT/HCPCS: 36415; 84550; 85652; 86140

== ENCOUNTER 2022-01-08 08:27 | Day surgery (SDC) | payer OTHER ==
[2022-01-07 10:07] VITALS: BMI 29.9
--- NOTE | 2022-01-08 08:11 | P.GSHP ---
History of Present Illness H&P Date: 01/08/22 CHIEF COMPLAINT: GERD and colon screen HISTORY OF PRESENT ILLNESS: The patient is a 51-year-old male who presents with gastroesophageal reflux disease and need for colon screen. Upper and lower endoscopy were offered for further evaluation and management. PAST MEDICAL HISTORY: Please see list. PAST SURGICAL HISTORY: Please see list. MEDICATIONS: Please see list. ALLERGIES: Please see list. SOCIAL HISTORY: No illicit drug use FAMILY HISTORY: No reports of Crohn disease or ulcerative colitis. REVIEW OF ORGAN SYSTEMS: CONSTITUTIONAL: No reports of fevers or chills. GI: Denies any blood in stools or constipation. PHYSICAL EXAM: VITAL SIGNS: Stable GENERAL: Well-developed pleasant in no acute distress. HEENT: No scleral icterus. Extraocular movements grossly intact. Moist buccal mucosa. NECK: Supple without lymphadenopathy. CHEST: Unlabored respirations. Equal bilateral excursions. CARDIOVASCULAR: Regular rate and rhythm. Distal 2+ pulses. ABDOMEN: Soft, nondistended. MUSCULOSKELETAL: No clubbing, cyanosis, or edema. ASSESSMENT: 1. Gastroesophageal reflux disease 2. Colon screen. PLAN: 1. Recommend proceeding with an upper and lower endoscopy Past Medical History Past Medical History: Atrial Fibrillation, Asthma, GERD/Reflux, Hyperlipidemia, Hypertension, Sleep Apnea/CPAP/BIPAP Additional Past Medical History / Comment(s): SEASONAL ASTHMA. USES CPAP. hx. colon polyps, hx. of a-fib, has med. that he can take if he feels it starting- hasn't had to take History of Any Multi-Drug Resistant Organisms: None Reported Past Surgical History: Heart Catheterization Additional Past Surgical History / Comment(s): COLONOSCOPY Past Anesthesia/Blood Transfusion Reactions: No Reported Reaction, Motion Sickness Past Psychological History: No Psychological Hx Reported Smoking Status: Never smoker Past Alcohol Use History: Rare Additional Past Alcohol Use History / Comment(s): CHEWED TOBACCO X20 YEARS-quit in April 2020 Past Drug Use History: None Reported Additional Drug Use History / Comment(s): cbd topical - Past Family History Mother Family Medical History: Cancer Medications and Allergies Home Medications Medication Instructions Recorded Confirmed Type Aspirin 81 mg PO DAILY chew 04/25/21 01/07/22 Rx Metoprolol Tartrate [Lopressor] 25 mg PO BID #180 tab 04/25/21 01/07/22 Rx Multivitamins, Thera [Multivitamin 1 tab PO DAILY 11/11/21 01/07/22 History (formulary)] Propafenone [Rythmol] 300 mg PO DIRECTED PRN 11/11/21 01/07/22 History Rosuvastatin Calcium [Crestor] 5 mg PO DAILY 11/11/21 01/07/22 History Suzi- [place] Antacid 1 tab PO DIRECTED PRN 01/07/22 History Diclofenac Sodium [Voltaren] 75 mg PO BID PRN 01/07/22 01/07/22 History Allergies Allergy/AdvReac Type Severity Reaction Status Date / Time magnesium sulfate Allergy Unknown SWELLING , Verified 01/07/22 10:09 [From Sutab] ITCHING potassium chloride Allergy Unknown SWELLING , Verified 01/07/22 10:09 [From Sutab] ITCHING sodium sulfate [From Sutab] Allergy Unknown SWELLING , Verified 01/07/22 10:09 ITCHING
[~2022-01-08 08:27] MED LIST changes: -LIDOCAINE 1% 20 ML VIAL (10MG/ML) FOR IV START INTRADERMA PRN
[2022-01-08] MEDS ORDERED: LIDOCAINE 1% (10MG/ML) FOR IV START INTRADERMA ONE (08:59)
[2022-01-08 09:03] VITALS: TEMP 97.6
[2022-01-08] MEDS ORDERED: PROPOFOL 10 MG/ML 20 ML VIAL IV ONE (09:21)
[2022-01-08] MEDS ORDERED: LIDOCAINE 1% INJ 10MG/ML (20 ML MDV) ONE (09:21)
--- NOTE | 2022-01-08 10:11 | P.PCN ---
Date of Procedure: 01/08/22 Description of Procedure: PREOPERATIVE DIAGNOSIS: Gastroesophageal reflux disease. POSTOPERATIVE DIAGNOSIS: Duodenitis Gastritis. Gastroesophageal reflux disease with erosive esophagitis OPERATION: Esophagogastroduodenoscopy with biopsies along antrum. SURGEON: Lillian Fitzgerald MD ANESTHESIA: MAC. INDICATIONS: The patient is a 51-year-old male who presents with reflux disease. Benefits and risks of the procedure were described. Informed consent was obtained. DESCRIPTION: The patient was brought into the endoscopy suite and laid in the left lateral decubitus position. An Olympus gastroscope was passed along the posterior oropharynx down to the distal esophagus where the squamocolumnar junction was encountered at 45 cm from the incisors. The stomach was entered and no bile reflux was found. Additional findings are listed below. Biopsies with cold forceps were obtained of the antrum. The first through third portion of the duodenum was examined. Retroflexion of the scope confirmed Hill grade 2 lower esophageal valve. The squamocolumnar junction demonstrated LA grade C erosive esophagitis. The stomach was desufflated. The patient tolerated the procedure well. FINDINGS: Squamocolumnar junction 45 cm from the incisors. Diaphragmatic hiatus at 45 cm. Hiatal hernia, 4 cm Hill grade 2 lower esophageal valve. LA grade C erosive esophagitis. Active duodenitis. Chronic gastritis Superficial gastric ulcer RECOMMENDATIONS: Start omeprazole 40 mg daily
[2022-01-08] MEDS: SODIUM CHLORIDE 0.9% 2,000 ML IV ONE ×2 (10:15→12:24)
--- NOTE | 2022-01-08 10:16 | P.PN ---
Progress Note - Text Progress Note Date: 01/08/22 Patient reports ALLERGIC reaction from abdominal cramping. We'll obtain basic metabolic panel and give additional fluids for hydration.
--- NOTE | 2022-01-08 10:16 | P.PCN ---
Date of Procedure: 01/08/22 Description of Procedure: PREOPERATIVE DIAGNOSIS: Personal history of colon polyps Colonoscopy screening POSTOPERATIVE DIAGNOSIS: Tubular adenoma, rectum Sigmoid diverticulosis OPERATION: Colonoscopy to the ileocecal valve and appendiceal orifice, cecum Colonoscopy with hot snare polypectomy SURGEON: Lillian Fitzgerald MD. ANESTHESIA: MAC. INDICATIONS: The patient is an 51-year-old male who presents personal history of colon polyps. Last colonoscopy 5 years. Benefits and risks were described and informed consent was obtained. DESCRIPTION OF PROCEDURE: The patient had undergone Sutab prep. The patient had been brought into the operating room and laid in the left lateral decubitus position. After adequate intravenous sedation, the rectum was examined with 2% lidocaine jelly. The prostate was unremarkable. External hemorrhoids were encountered. The rectal tone was within normal limits. No lesions were palpated in the rectal vault. An Olympus colonoscope was advanced until the cecum, ileocecal valve and appendiceal orifice were clearly viewed. The prep was good. Sigmoid divertic ulosis was encountered. Colonic polyps were found and removed. No evidence of focal colitis was found. Retroflexion of the scope demonstrated grade 1 internal hemorrhoids without active bleeding or inflammation. The colon was desufflated. The patient had tolerated the procedure well. Withdrawal time was over 6 minutes. FINDINGS: Aronchick preparation quality scale 2 (1-5) Internal hemorrhoids, grade 2 External hemorrhoids, grade 2. No arteriovenous malformations. Sigmoid diverticulosis Removal of 1 polyps: - Snare polypectomy 10 cm from the anal verge, 5 mm tubulovillous adenoma polyp, at rectum No focal colitis. RECOMMENDATIONS: Repeat colonoscopy 3 years, 2024 Plan - Discharge Summary New Discharge Prescriptions: Continue Aspirin 81 mg PO DAILY chew Metoprolol Tartrate [Lopressor] 25 mg PO BID #180 tab Rosuvastatin Calcium [Crestor] 5 mg PO DAILY Multivitamins, Thera [Multivitamin (formulary)] 1 tab PO DAILY Propafenone [Rythmol] 300 mg PO DIRECTED PRN PRN Reason: take for onset of a fib Suzi- [place] Antacid 1 tab PO DIRECTED PRN PRN Reason: Heartburn Discontinued Diclofenac Sodium [Voltaren] 75 mg PO BID PRN PRN Reason: Pain Discharge Medication List Aspirin 81 mg PO DAILY chew 04/25/21 [Rx] Metoprolol Tartrate [Lopressor] 25 mg PO BID #180 tab 04/25/21 [Rx] Multivitamins, Thera [Multivitamin (formulary)] 1 tab PO DAILY 11/11/21 [History] Propafenone [Rythmol] 300 mg PO DIRECTED PRN 11/11/21 [History] Rosuvastatin Calcium [Crestor] 5 mg PO DAILY 11/11/21 [History] Suzi- [place] Antacid 1 tab PO DIRECTED PRN 01/07/22 [History] Follow up Appointment(s)/Referral(s): Lillian Fitzgerald MD [STAFF PHYSICIAN] - 01/28/22 Patient Instructions/Handouts: *Surgery [facility] - (Anesthesia) Endoscopy Discharge Instructions, Gastritis (DC), Diverticulosis (DC), Diet for Stomach Ulcers and Gastritis (ED), Colorectal Polyps (GEN), Diverticulosis Diet (GEN) Activity/Diet/Wound Care/Special Instructions: Repeat colonoscopy in 3 years, 2024. MAY RE-START DICLOFENAC on 01/10/22 Discharge Disposition: HOME SELF-CARE
[2022-01-08 10:42] LABS: African American GFR (CKD) >90 (>60 ml/min/1.73 sqM); Anion Gap 8 mmol/L; Blood Urea Nitrogen 14 mg/dL (9-20); Carbon Dioxide 30 mmol/L (22-30); Chloride 101 mmol/L (98-107); Glucose 111 mg/dL (74-99); Non-African American GFR(CKD) >90 (>60 ml/min/1.73 sqM); Sodium 139 mmol/L (137-145)
--- NOTE | 2022-01-08 11:37 | P.PN ---
Progress Note - Text Progress Note Date: 01/08/22 Patient reports feeling better after fluid boluses. Labs reviewed potassium normal. Reports lower extremity cramps. Recommend diet and take Tylenol as needed.
[2022-01-08 12:26] VITALS: BP 128/83; PULSE 77; RESP 16
== END 2022-01-08 12:38 | disposition home or self-care (01) ==
LOC: ORWHC2ENDO 08:27
PROVIDERS: ATTEND Surgery Plastic and Reconstructive Surgery
DX: Z12.11 Encounter for screening for malignant neoplasm of colon (principal); K62.1 Rectal polyp; K31.9 Disease of stomach and duodenum, unspecified; K29.70 Gastritis, unspecified, without bleeding; K29.80 Duodenitis without bleeding; K21.00 Gastro-esophageal reflux disease with esophagitis, without bleeding; Z86.010 Personal history of colon polyps; K57.30 Diverticulosis of large intestine without perforation or abscess without bleeding; K64.4 Residual hemorrhoidal skin tags; K64.1 Second degree hemorrhoids; I48.91 Unspecified atrial fibrillation; J45.909 Unspecified asthma, uncomplicated; E78.5 Hyperlipidemia, unspecified; I10 Essential (primary) hypertension; G47.33 Obstructive sleep apnea (adult) (pediatric); Z98.890 Other specified postprocedural states; Z87.891 Personal history of nicotine dependence; Z80.9 Family history of malignant neoplasm, unspecified; Z79.82 Long term (current) use of aspirin; Z79.899 Other long term (current) drug therapy; Z88.2 Allergy status to sulfonamides; Z88.8 Allergy status to other drugs, medicaments and biological substances
CPT/HCPCS: 88305; 80048; 45385; 43239; J2001; J2704

== ENCOUNTER → 2023-09-25 | Outpatient (CLI) | payer OTHER ==
--- NOTE | 2023-09-25 11:21 | CT ---
EXAMINATION TYPE: CT sinus wo con DATE OF EXAM: 09/25/2023 COMPARISON: None HISTORY: 53-year-old male J3 2.0, chronic maxillary sinusitis CT DLP: 628.7 mGycm Automated exposure control for dose reduction was used. TECHNIQUE: Noncontrast axial views of the paranasal sinuses were obtained. Coronal and sagittal refor matted images were obtained from the axial views for evaluation of nasal cavity, osteomeatal complex and skull base integrity. FINDINGS: PARANASAL SINUSES: There is a mucosal retention cyst measuring 1.1 cm along the roof and anterior wall of the right maxi llary sinus. Additional trace mucosal thickening within the bilateral maxillary sinuses. Scattered trace mucosal thickening ethmoid air cells. Frontal and sphenoid sinuses are well pneumatized. No air-fluid levels. Reactive jesús- osteogenesis is not seen. There is no destruction of the osseous solorzano of the paranasal sinuses. THE NASAL CAVITY: The osteomeatal complexes are patent. The nasal septum is not deviated. The imaged brain and orbits are normal in appearance. Mastoid air cells and middle ear cavities are well pneumatized. Reformatted images confirm above findings. IMPRESSION: Only trace mucosal thickening in the maxillary sinuses and ethmoid air cells. An additional 1.1 cm mu cosal retention cyst in the right maxillary sinus.
== END | disposition home or self-care (01) ==
LOC: RADCTMAIN 08:08
PROVIDERS: ATTEND Otolaryngology
DX: J32.0 Chronic maxillary sinusitis (principal); J34.89 Other specified disorders of nose and nasal sinuses
CPT/HCPCS: 70486

== ENCOUNTER → 2023-11-12 | Outpatient (CLI) | payer OTHER ==
--- NOTE | 2023-11-12 16:39 | P.PN ---
Subjective DATE: 11/12/2023 FOLLOW UP VISIT. Patient with obstructive sleep apnea hypopnea syndrome return to sleep center for follow-up visit. Information from previous visit have been reviewed. Patient is using PAP equipment every night for the whole night, getting PAP supplies in time. The patient does not have significant problems with the mask, PAP unit and humidification. [place] sleepiness scale is 6, which is normal. I checked information from PAP unit. PAP unit pressure 5-13, average 11.8 cm H2O. Usage is 90% and 77 % for more then 4 hours, average 5.8 hours per night. Leak is 19.0 l/m, which is in acceptable range. Apnea Hypopnea Index is 2.0, which is normal. MEDICATIONS:1. Metoprolol 25 mg twice a day 2. Crestor 5 mg once a day 3. Aspirin 81 mg twice a day During physical exam: GENERAL: A pleasant patient without any distress. VITAL SIGNS: BP 121/76, HR 64, RR 16, weight 241.4, temperature 98.8, oxygen saturation at room air 96 % . HEENT: PERRLA, EOMI.low position of soft palate, [place] 3. NECK: Supple. No JVD. LUNGS: Clear to percussion and to auscultation. Good air exchange. No wheezing or rhonchi. HEART: S1, S2 regular. ABDOMEN: Soft and nontender.[] EXTREMITIES: No clubbing or cyanosis. 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 No focal deficit. Impressions: 1. Obstructive sleep apnea-hypopnea syndrome. Patient demonstrated good compliance with treatment, benefiting from treatment. 2. Hypertension. 3. History of episodes of atrial fibrillation. 4. Hyperlipidemia. Plan: 1. Continue using PAP equipment every night for the whole night. 2. To change air filter at least 1-2 times per month. 3. PAP unit should stay lower then position of the head. 4. Advised patient to remove all remaining water from humidifier canister daily and make it dry after each usage. Refill canister with fresh distilled water b efore each usage. 5. Sleep hygiene with regular time in bed for at least 8 hours. 6. Precautions related to driving. No driving if feel any sleepiness. 7. I will maintain prescription for PAP supplies including mask, tube, filters. 8. Watching weight. 9. Follow up visit in 6 months or earlier if patient has any problems. Thank you very much for allowing me to participate in the management of your patient. Navid Ashton MD, PhD, FAASM. Diplomat of [place] [employer], Sleep Medicine Board by [place] [employer] of [facility] [place]
== END ==
LOC: 3 N SLEEP 15:36
PROVIDERS: ATTEND Internal Medicine
DX: G47.33 Obstructive sleep apnea (adult) (pediatric) (principal); E78.5 Hyperlipidemia, unspecified; I10 Essential (primary) hypertension; I48.91 Unspecified atrial fibrillation; Z99.89 Dependence on other enabling machines and devices; Z79.899 Other long term (current) drug therapy; Z79.82 Long term (current) use of aspirin; Z88.2 Allergy status to sulfonamides; Z88.8 Allergy status to other drugs, medicaments and biological substances
CPT/HCPCS: 99212

== ENCOUNTER 2023-11-23 14:33 | Emergency (ER) | payer OTHER ==
[2023-11-23 15:17] LABS: Basophils % (A) 1 %; Eosinophils # (A) 0.1 k/uL (0-0.7); Eosinophils % (A) 1 %; HCT 43.7 % (39.0-53.0); HGB 15.3 gm/dL (13.0-17.5); Lymphocytes # (A) 1.6 k/uL (1.0-4.8); Lymphocytes % (A) 25 %; MCH 31.7 pg (25.0-35.0); MCV 90.4 fL (80.0-100.0); Mean Platelet Volume 7.8; Monocytes # (A) 0.4 k/uL (0-1.0); Monocytes % (A) 7 %; Neutrophils # (A) 3.9 k/uL (1.3-7.7); Neutrophils % (A) 62 %; Platelet Count 207 k/uL (150-450); RBC 4.83 m/uL (4.30-5.90); RDW 12.2 % (11.5-15.5); WBC 6.3 k/uL (3.8-10.6)
[2023-11-23 15:26] LABS: Prothrombin Time 10.6 sec (10.0-12.5)
[2023-11-23 15:35] LABS: ALT 33 U/L (4-49); AST 29 U/L (17-59); African American GFR (CKD) >90 (>60 ml/min/1.73 sqM); Albumin 4.8 g/dL (3.5-5.0); Alkaline Phosphatase 87 U/L (38-126); Anion Gap 12 mmol/L; Blood Urea Nitrogen 21 mg/dL (9-20); Calcium 9.7 mg/dL (8.4-10.2); Carbon Dioxide 26 mmol/L (22-30); Chloride 101 mmol/L (98-107); Glucose 116 mg/dL (74-99); Magnesium 1.6 mg/dL (1.6-2.3); Non-African American GFR(CKD) >90 (>60 ml/min/1.73 sqM); Potassium 4.2 mmol/L (3.5-5.1); Sodium 139 mmol/L (137-145); Total Bilirubin 0.6 mg/dL (0.2-1.3); Total Protein 8.3 g/dL (6.3-8.2)
--- NOTE | 2023-11-23 15:39 | XR ---
EXAMINATION TYPE: XR chest 2V DATE OF EXAM: 11/23/2023 COMPARISON: NONE TECHNIQUE: PA and lateral views submitted. HISTORY: Chest tightness FINDINGS: The lungs are clear and there is no pneumothorax, pleural effusion, or focal pneumonia. Heart size normal and no overt failure. Osseous structures demonstrate hypertrophic and degenerative changes of the spine. Mild emphysematous changes. IMPRESSION: 1. No acute process.
--- NOTE | 2023-11-23 15:39 | ED ---
Chest Pain HPI - General Source: patient, RN notes reviewed Mode of arrival: ambulatory Limitations: no limitations <Aury Rodriguez - Last Filed: 11/23/23 15:39> - General Source: RN notes reviewed, old records reviewed Mode of arrival: ambulatory Limitations: no limitations - History of Present Illness MD Complaint: chest pain -: minutes(s) Onset: during rest, during exertion Pain Location: substernal, left chest Pain Radiation: none Severity: moderate Severity scale (1-10): 7 Quality: sharp Consistency: constant Improves With: nothing Worsens With: nothing Anginal Symptoms: sense of impending doom Other Symptoms: palpitations Treatments Prior to Arrival: none <Juvencio Carter - Last Filed: 11/30/23 16:29> - General Chief Complaint: Chest Pain Stated Complaint: tightness in chest Time Seen by Provider: 11/23/23 15:36 - History of Present Illness Initial Comments: Patient's 53-year-old male presented ER chief complaint of chest tightness. Patient states he was watching videos and started to have chest tightness and a flushed feeling. Patient does report a history of A. fib. He takes a baby ASA daily. (Aury Rodriguez) This is a 53-year-old male to the emergency department today for evaluation of chest pain and tightness. Patient came just prior to arrival he does have similar history of this in the past with concern for atrial fibrillation. Patient going for evaluation of cause of his chest pain with no acute findings. (Juvencio Carter) - Related Data Home Medications Medication Instructions Recorded Confirmed Multivitamins, Thera [Multivitamin 1 tab PO DAILY 11/11/21 01/08/22 (formulary)] Propafenone [Rythmol] 300 mg PO DIRECTED PRN 11/11/21 01/08/22 Rosuvastatin Calcium [Crestor] 5 mg PO DAILY 11/11/21 01/08/22 Suiz- [place] Antacid 1 tab PO DIRECTED PRN 01/07/22 01/08/22 Previous Rx's Medication Instructions Recorded Aspirin 81 mg PO DAILY chew 04/25/21 Metoprolol Tartrate [Lopressor] 25 mg PO BID #180 tab 04/25/21 Omeprazole [PriLOSEC] 40 mg PO DAILY #14 cap 01/12/22 Allergies Allergy/AdvReac Type Severity Reaction Status Date / Time magnesium sulfate Allergy Unknown SWELLING , Verified 11/23/23 14:45 [From Sutab] ITCHING potassium chloride Allergy Unknown SWELLING , Verified 11/23/23 14:45 [From Sutab] ITCHING sodium sulfate [From Sutab] Allergy Unknown SWELLING , Verified 11/23/23 14:45 ITCHING Review of Systems ROS Other: All systems not noted in ROS Statement are negative. <Aury Rodriguez - Last Filed: 11/23/23 15:39> ROS Other: All systems not noted in ROS Statement are negative. <Juvencio Carter - Last Filed: 11/30/23 16:29> ROS Statement: Those systems with pertinent positive or pertinent negative responses have been documented in the HPI. EKG Findings - EKG Comments: EKG Findings:: EKG is sinus 55 RI 167 QRS 105 QTC 389 - EKG Results: EKG: interpreted by ERMD <Juvencio Carter - Last Filed: 11/30/23 16:29> Past Medical History Past Medical History: Atrial Fibrillation, Asthma, GERD/Reflux, Hyperlipidemia, Hypertension, Sleep Apnea/CPAP/BIPAP Additional Past Medical History / Comment(s): SEASONAL ASTHMA. USES CPAP. hx. colon polyps, hx. of a-fib, has med. that he can take if he feels it starting- hasn't had to take History of Any Multi-Drug Resistant Organisms: None Reported Past Surgical History: Heart Catheterization Additional Past Surgical History / Comment(s): COLONOSCOPY Past Anesthesia/Blood Transfusion Reactions: No Reported Reaction, Motion Sickness Past Psychological History: No Psychological Hx Reported Smoking Status: Never smoker Past Alcohol Use History: Rare Past Drug Use History: None Reported - Past Family History Mother Family Medical History: Cancer <Aury Rodriguez - Last Filed: 11/23/23 15:39> General Exam Limitations: no limitations <Aury Rodriguez - Last Filed: 11/23/23 15:39> General appearance: alert, in no apparent distress, anxious Head exam: Present: atraumatic, normocephalic, normal inspection Eye exam: Present: normal appearance, PERRL, EOMI. Absent: scleral icterus, conjunctival injection, periorbital swelling ENT exam: Present: normal exam, mucous membranes moist Neck exam: Present: normal inspection. Absent: tenderness, meningismus, lymphadenopathy Respiratory exam: Present: normal lung sounds bilaterally. Absent: respiratory distress, wheezes, rales, rhonchi, stridor Cardiovascular Exam: Present: regular rate, normal rhythm, normal heart sounds. Absent: systolic murmur, diastolic murmur, rubs, gallop, clicks GI/Abdominal exam: Present: soft, normal bowel sounds. Absent: distended, tenderness, guarding, rebound, rigid Extremities exam: Present: normal inspection, full ROM, normal capillary refill. Absent: tenderness, pedal edema, joint swelling, calf tenderness Back exam: Present: normal inspection Neurological exam: Present: alert, oriented X3, CN II-XII intact Psychiatric exam: Present: normal affect, normal mood Skin exam: Present: warm, dry, intact, normal color. Absent: rash <Juvencio Carter - Last Filed: 11/30/23 16:29> - General Exam Comments Initial Comments: Visual Physical Exam Vital signs reviewed General: Well-appearing, nontoxic, no acute distress. Head: Normocephalic, atraumatic Eyes: PERRLA, EOMI ENT: Airway patent Chest: Nonlabored breathing Skin: No visual rash, normal skin tone Neuro: Alert and oriented 3 Musculoskeletal: No gross abnormalities (Aury Rodriguez) Course <Juvencio Carter - Last Filed: 11/30/23 16:29> Vital Signs 11/23/23 11/23/23 11/23/23 14:43 17:19 17:52 Temperature 97.8 F 98.1 F Pulse Rate 62 66 68 Respiratory 16 18 Rate Blood Pressure 160/91 152/82 148/80 O2 Sat by Pulse 99 98 98 Oximetry - Reevaluation(s) Reevaluation #1: Medical records reviewed (Juvencio Carter) Reevaluation #2: Patient symptoms improved (Juvencio Carter) Reevaluation #3: Patient informed results questions answered studies Chest x-rays negative for acute disease (Juvencio Carter) Reevaluation #4: Was pt. sent in by a medical professional or institution (, PA, JEWEL STRIPPER, urgent care, hospital, or retirement...) When possible be specific @ -no Did you speak to anyone other than the patient for history (EMS, parent, family, police, friend...)? What history was obtained from this source @ -no Did you review nursing and triage notes (agree or disagree)? Why? @ -agree Are old charts reviewed (outside hosp., previous admission, EMS record, old EKG, old radiological studies, urgent care reports/EKG's, retirement records)? Report findings @ -yes Differential Diagnosis (chest pain, altered mental status, abdominal pain women, abdominal pain men, vaginal bleeding, weakness, fever, dyspnea, syncope, headache, dizziness, GI bleed, back pain, seizure, CVA, palpatations, mental health, musculoskeletal)? @ -prior EKG interpreted by me (3pts min.). @ -yes X-rays interpreted by me (1pt min.). @ -yes negative for acute disease CT interpreted by me (1pt min.). @ -no U/S interpreted by me (1pt. min.). @ -no What testing was considered but not performed or refused? (CT, X-rays, U/S, labs)? Why? @ -none What meds were considered but not given or refused? Why? @ -none Did you discuss the management of the patient with other professionals (professionals i.e. , PA, JEWEL STRIPPER, lab, RT, psych nurse, social science teacher, certification engineer, teacher, optics technical officer, case resource manager)? Give summary @ -no Was smoking cessation discussed for >3mins.? @ -no Were there social determinants of health that impacted care today? How? (Homelessness, low income, unemployed, alcoholism, drug addiction, transportation, low edu. Level, literacy, decrease access to med. care, usp, rehab)? @ -none Was there de-escalation of care discussed even if they declined (Discuss DNR or withdrawal of care, Hospice)? DNR status @ -no What co-morbidities impacted this encounter? (DM, HTN, Smoking, COPD, CAD, Cancer, CVA, ARF, Chemo, Hep., AIDS, mental health diagnosis, sleep apnea, morbid obesity)? @ -none Was patient admitted / discharged? Hospital course, mention meds given and route, prescriptions, significant lab abnormalities, going to OR and other pertinent info. @ - 53 male to the emergency department for evaluation significant chest pain with normal EKG and normal troponin normal chest x-ray here in the emergency room, patient feels well and can be discharged home Discharge Was critical care preformed (if so, how long)? @ -no Undiagnosed new problem with uncertain prognosis? @ -no Drug Therapy requiring intensive monitoring for toxicity (Heparin, Nitro, Insulin, Cardizem)? @ -no Were any procedures done? @ -no Diagnosis/symptom? @ -Chest pain Acute, or Chronic, or Acute on Chronic? @ -Acute Uncomplicated (without systemic symptoms) or Complicated (systemic symptoms)? @ -Complicated Side effects of treatment? @ -no Exacerbation, Progression, or Severe Exacerbation? @ -exacerbation Poses a threat to life or bodily function? How? (Chest pain, [place], ID, pneumonia, PE, COPD, DKA, ARF, appy, cholecystitis, CVA, Diverticulitis, Homicidal, Suicidal, threat to staff... and all critical care pts) @ -yes with acute ACS and chest pain (Juvencio Carter) Reevaluation #5: Differential Chest Pain: Stable Angina, Unstable Angina, STEMI, NSTEMI Aortic Dissection, Pneumothorax, Musculoskeletal, Esophageal Spasm GERD, Cholecystitis, Pancreatitis, Zoster, this is not meant to be an all-inclusive list. (Juvencio Carter) Chest Pain MDM <Aury Rodriguez - Last Filed: 11/23/23 15:39> <Juvencio Carter - Last Filed: 11/30/23 16:29> - MDM I performed the quick note portion of the exam. Electronically signed by Aury Rodriguez PA-C (Aury Rodriguez) 53 male to the emergency department for evaluation significant chest pain with normal EKG and normal troponin normal chest x-ray here in the emergency room, patient feels well and can be discharged home (Juvencio Carter) Disposition <Aury Rodriguez - Last Filed: 11/23/23 15:39> Is patient prescribed a controlled substance at d/c from ED?: No Time of Disposition: 17:30 <Juvencio Carter - Last Filed: 11/30/23 16:29> Clinical Impression: Atypical chest pain Disposition: HOME SELF-CARE Condition: Good Instructions (If sedation given, give patient instructions): Chest Pain (ED) Referrals: Mukund Carter DO [Primary Care Provider] - 1-2 days
[2023-11-23 17:56] VITALS: BP 148/80; PULSE 68; RESP 18; TEMP 98.1
== END 2023-11-23 18:02 | disposition home or self-care (01) ==
LOC: EC 14:33
DX: R07.89 Other chest pain (principal); I10 Essential (primary) hypertension; E78.5 Hyperlipidemia, unspecified; J45.909 Unspecified asthma, uncomplicated; I48.91 Unspecified atrial fibrillation; K21.9 Gastro-esophageal reflux disease without esophagitis; Z79.899 Other long term (current) drug therapy; Z88.8 Allergy status to other drugs, medicaments and biological substances
CPT/HCPCS: 36415; 71046; 80053; 83735; 84484; 85025; 85610; 85730; 93005; 99285

== ENCOUNTER → 2024-05-02 | Outpatient (CLI) | payer OTHER ==
[2024-05-02 11:01] LABS: ALT 56 U/L (10-49); AST 37 U/L (14-35); Albumin 4.9 g/dL (3.8-4.9); Albumin/Globulin Ratio 1.81 Ratio (1.60-3.17); Alkaline Phosphatase 72 U/L (41-126); Bilirubin, Conjugated <0.20 mg/dL (0.20-0.40); Bilirubin,Unconjugated >0.30 mg/dL (0.20-1.00); Chol/HDL Ratio 3.73 Ratio; Globulin 2.7 g/dL (1.6-3.3); LDL Cholesterol,Calculated 112.5 mg/dL (0.0-131.0); Total Bilirubin 0.5 mg/dL (0.3-1.2); Total Protein 7.6 g/dL (6.2-8.2)
== END | disposition home or self-care (01) ==
LOC: LABWHC1 07:25
PROVIDERS: ATTEND Internal Medicine Cardiovascular Disease
DX: I25.10 Atherosclerotic heart disease of native coronary artery without angina pectoris (principal); I48.0 Paroxysmal atrial fibrillation; E78.2 Mixed hyperlipidemia
CPT/HCPCS: 36415; 80061; 80076; 86141

== ENCOUNTER → 2024-06-30 | Outpatient (CLI) | payer OTHER | LOC: 3 N SLEEP 10:50 | PROVIDERS: ATTEND Internal Medicine | CPT/HCPCS: 99212 ==

== ENCOUNTER → 2024-08-24 | Outpatient (CLI) | payer OTHER ==
[2024-08-24 10:48] LABS: ALT 29 U/L (10-49); AST 25 U/L (14-35); Albumin 4.5 g/dL (3.8-4.9); Albumin/Globulin Ratio 1.61 Ratio (1.60-3.17); Alkaline Phosphatase 66 U/L (41-126); Bilirubin, Conjugated <0.20 mg/dL (0.20-0.40); Bilirubin,Unconjugated >0.40 mg/dL (0.20-1.00); Chol/HDL Ratio 3.42 Ratio; Globulin 2.8 g/dL (1.6-3.3); LDL Cholesterol,Calculated 82.5 mg/dL (0.0-131.0); Total Bilirubin 0.6 mg/dL (0.3-1.2); Total Protein 7.3 g/dL (6.2-8.2)
== END | disposition home or self-care (01) ==
LOC: LABWHC1 07:13
PROVIDERS: ATTEND Internal Medicine Cardiovascular Disease
DX: E78.2 Mixed hyperlipidemia (principal)
CPT/HCPCS: 36415; 80061; 80076